=== PATIENT | female | born 1980 | race Caucasian/White ===

== ENCOUNTER 2016-06-03 14:50 | Outpatient (CLI) | payer BC ==
--- NOTE | 2016-06-03 18:22 | DIAGNOSTIC IMAGING REPORT ---
PROCEDURE: US COMPLETE PELVIC W/TRANSVAG INDICATION: SUBMUCOUS LEIOMYOMA OF UTERUS TECHNIQUE: Transabdominal and endovaginal machado scale and color Doppler sonographic images of the female pelvis were obtained. COMPARISON: Pelvic ultrasound 01/09/2016 FINDINGS: TRANSABDOMINAL SCANS: 8 mm right renal lower pole and 7 mm left renal lower pole echogenic foci, calculi versus angiomyolipomas. Anteverted uterus. TRANSVAGINAL SCANS: The uterus measures 6.6 x 5.9 x 3.4 cm with a of 4.1 cm right anterior submucosal fibroid (previously 4.9 cm). Endometrium is indistinct. Right ovary measures 5.3 x 3.8 x 3.4 cm with a 3.6 cm cyst demonstrating internal echoes suggestive of a hemorrhagic cyst. There are two additional simple follicles measure 1.6 cm and 1.3 cm. There is vascular flow to the right ovary. Left ovary was not visualized on the transvaginal or transabdominal scans. No adnexal mass or free fluid in the cul-de-sac. IMPRESSION: 1. 4.1 cm right anterior submucosal fibroid (previously 4.9 cm) 2. 3.6 cm right ovarian hemorrhagic cyst 3. Left ovary not visualized. 4. Echogenic foci in the lower poles of both kidneys, calculi versus angiomyolipomas versus artifact.
== END 2016-06-03 23:00 ==
LOC: US SRH 14:50
DX: D25.0 Submucous leiomyoma of uterus (principal); N83.01 Follicular cyst of right ovary